=== PATIENT | male | born 1995 | race Caucasian/White ===

== ENCOUNTER 2023-11-29 19:32 | Emergency (ER) | payer OTHER ==
[~2023-11-29] VITALS: Ht 170.2 cm; Wt 73.6 kg
[2023-11-29 19:39] VITALS: BP 158/96; PULSE 82; RESP 16; TEMP 98.7
[2023-11-29] MEDS: IBUPROFEN 800 MG TABLET PO ONE (20:33)
== END 2023-11-29 20:57 | disposition home or self-care (01) ==
LOC: EMS 19:33
DX: S20.212A Contusion of left front wall of thorax, initial encounter (principal); X58.XXXA Exposure to other specified factors, initial encounter; Y93.89 Activity, other specified; Y92.89 Other specified places as the place of occurrence of the external cause; Y99.8 Other external cause status
CPT/HCPCS: 71100; 99283